=== PATIENT | male | born 2005 | race Caucasian/White ===

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

== ENCOUNTER 2025-02-15 18:21 | Emergency (ER) | payer OTHER ==
[~2025-02-15] VITALS: Ht 162.6 cm; Wt 65.3 kg
[2025-02-15] MEDS ORDERED: RISPERDAL1 MG (19:43)
[2025-02-15] MEDS ORDERED: RESTORIL15 M1 (19:43)
[2025-02-15] MEDS ORDERED: 0.9 % SODIUM CHLORIDE 1,000 ML IV SCH ×2 (20:15→20:30)
[2025-02-15] MEDS ORDERED: DIPHENHYDRAMINE HCL 50 MG/ML VIAL 1ML IV SCH (20:15)
[2025-02-15] MEDS ORDERED: DIPHENHYDRAMINE HCL 50 MG/ML VIAL 1ML ONE (20:50)
[2025-02-15 21:15] LABS: BASO % 1.0 % (0.1-1.2); EOS # 0.03 (0.04-0.54); EOS % 0.4 % (0.7-7.0); LYMPH # 2.05 (1.18-3.74); LYMPH % 27.9 % (19.3-53.1); MEAN PLATELET VOLUME 9.60 fl (9.4-12.4); MONO # 1.39 (0.24-0.82); NEUT # 3.75 (1.56-6.13); NEUT % 51.0 % (34.0-71.1); RED CELL DISTRIBUTION WIDTH 13.2 % (11.6-14.4)
[2025-02-15 21:22] LABS: MONO % 18.9 % (4.7-12.5)
[2025-02-15 21:44] LABS: ALT/SGPT 95.0 U/L (12-78); AST/SGOT 30.0 U/L (15-37); BILIRUBIN TOTAL 0.3 mg/dL (0.3-1.2); BUN CREA RATIO 17.0 (7.0-25.0); CREATININE SERUM 1.0 mg/dL (0.70-1.30); GFR 96.26; GLOBULINA 3.3 G/DL (2.4-3.5); GLUCOSE FASTING 106.0 mg/dL (65-100); OSMOLALITY SERUM 281.0 MOSM/KG (275-295)
[2025-02-15 22:30] LABS: COVID-19 AG NEGATIVE (NEGATIVE)
[2025-02-15 22:52] LABS: COCAINE NEGATIVE (NEGATIVE); METHADONE NEGATIVE (NEGATIVE); OPIATES NEGATIVE (NEGATIVE); THC ( Cannabinoids) POSITIVE (NEGATIVE)
[2025-02-15 23:42] VITALS: BP 152/76; O2SAT 100
[2025-02-16] MEDS ORDERED: ZYNCOF 20-400120 ML PO (03:13)
[2025-02-16] MEDS ORDERED: ALLEGRA ALLERG180 MG PO (03:15)
== END 2025-02-16 03:21 ==
LOC: ER 18:21 → EMR PED 18:36 → ER 18:36 → EMR PED 02-16 03:21
PROVIDERS: Emergency Medicine Pediatric Emergency Medicine
DX: F41.9 Anxiety disorder, unspecified (principal); F32.A Depression, unspecified; R05.9 Cough, unspecified; Z20.822 Contact with and (suspected) exposure to COVID-19